=== PATIENT | male | born 1990 | race Caucasian/White ===

== ENCOUNTER 2022-08-15 10:01 | Emergency (ER) | payer OTHER, SELFPAY ==
[2022-08-15] VITALS (16 sets, daily range): BP systolic 122–138; BP diastolic 71–85; PULSE 76–92; RESP 13–27; TEMP 36.9; O2SAT 96–100
--- NOTE | ~2022-08-15 | XR_ITS ---
XR chest 1V 08/15/2022 10:29 Indication: Shortness of breath Procedure: AP portable chest Comparison: No prior studies for comparison. Findings: There are reticulonodular densities in the lung bases, most likely infectious/inflammatory. Heart size normal. No pleural effusion, edema or pneumothorax. No acute osseous abnormality. Impression: 1: Bibasilar reticulonodular densities, most likely infectious/inflammatory. Reviewed, dictated and finalized at location B. Impression: 1: Bibasilar reticulonodular densities, most likely infectious/inflammatory.
--- NOTE | 2022-08-15 10:17 | ECG_ITS ---
Measurements Intervals Clifford Rate: 88 P: 44 AK: 129 QRS: 10 QRSD: 85 T: 11 QT: 324 QTc: 392 Interpretive Statements SINUS RHYTHM BASELINE ARTIFACT- I, II, AVR, V4-V5 NORMAL ECG NO PREVIOUS ECG AVAILABLE FOR COMPARISON Electronically Signed On 08-15-2022 11:29:26 CDT by Huey Carlson D.O.
[2022-08-15 10:35] LABS: Basophils Absolute Auto 0.1 K/mm3 (0.0-0.1); Basophils Percent Auto 0.4 % (0.2-1.2); Eosinophils Absolute Auto 0.1 K/mm3 (0-0.3); Eosinophils Percent Auto 0.3 % (0-4.4); Hematocrit 40.9 % (42.0-52.0); Hemoglobin 14.4 g/dL (14.0-18.0); Immature Granulocyte Percent A 1.2 % (0-0.5); Lymphocytes Absolute Auto 3.94 K/mm3 (0.9-3.2); Mean Corpuscular HGB Conc 35.2 g/dl (32-36); Mean Corpuscular Hemoglobin 32.2 pg (26-34); Mean Corpuscular Volume 91.5 fl (80-100); Mean Platelet Volume 10.3 fl (7.4-10.4); Monocytes Absolute Auto 1.2 K/mm3 (0.1-0.6); Monocytes Percent Auto 7.2 % (2.6-8.5); Neutrophils Percent Auto 66.9 % (45.5-73.1); Platelet Count Result 227 k/mm3 (150-375); Red Blood Count 4.47 M/mm3 (4.6-6.20); Red Cell Distribution Width 12.7 % (11.5-14.5); White Blood Count 16.4 K/mm3 (4.5-10.0)
--- NOTE | 2022-08-15 10:47 | ED.SOB ---
HPI - SOB/Dyspnea General Chief Complaint: Shortness of Breath/Dyspnea Stated Complaint: SOB Time Seen by Provider: 08/15/22 10:24 History of Present Illness HPI Narrative: 32-year-old male presents to the emergency room for evaluation of shortness of breath, cough, difficulty breathing, sinus congestion, postnasal drip, frequently clearing his throat, and popping sensation in his ears. Patient states that symptoms have been present for 5 days. Patient states he was seen at an outside emergency room 3 days ago and diagnosed with bronchitis. Patient was given Tessalon Perles and steroid Dosepak. States symptoms are getting worse. Related Data Allergies Allergy/AdvReac Type Severity Reaction Status Date / Time Penicillins Allergy Hives Verified 08/15/22 10:32 Review of Systems Review of Systems: CONSTITUTIONAL: Denies fever, chills, or sweats. EYES: Denies visual changes, redness, or discharge. ENT: Reports rhinorrhea, congestion, sore throat, or otalgia. CARDIOVASCULAR: Denies chest pain, palpitations, or edema. RESPIRATORY: Reports cough or dyspnea. GASTROINTESTINAL: Denies abdominal pain, nausea, vomiting, or diarrhea. GENITOURINARY: Denies dysuria or hematuria. SKIN: Denies rash or itching. MUSCULOSKELETAL: Denies back pain, joint pain, or myalgia. NEUROLOGIC: Denies headache, numbness, dizziness, or weakness. PSYCHIATRIC: Denies anxiety or depression. Exam Narrative: GENERAL: Well-appearing, well-nourished, no physical limitations, and in no acute distress. HEAD: Normocephalic, atraumatic. EYES: Conjunctivae normal, PERRLA and EOMI. ENT: External nose normal, Nares clear, no rhinorrhea or epistaxis. Mucous membranes moist. Oropharynx without tonsillar hypertrophy exudate or other lesions. External ears normal, bilateral TMs normal bilaterally NECK: Supple. No adenopathy or masses. CHEST: Clear to auscultation. No respiratory distress. No wheezes rales or rhonchi. HEART: Regular rate and rhythm. No murmur heard. Normal peripheral pulses. EXTREMITIES: Normal range of motion. No edema. No clubbing or cyanosis SKIN: Warm, dry, no rash. No noted wounds NEURO: No focal deficits. Alert and oriented x3. MAEW. CN's II-XI intact bilaterally, normal gait PSYCH: Cooperative. Normal mood and affect. Course Vital Signs Vital signs: Vital Signs Temperature 36.9 C 08/15/22 10:27 Pulse Rate 92 08/15/22 10:27 Respiratory Rate 15 08/15/22 10:27 Blood Pressure 136/85 08/15/22 10:27 Pulse Oximetry 100 08/15/22 10:27 Oxygen Delivery Room Air 08/15/22 10:27 Temperature 36.9 C 08/15/22 10:27 Pulse Rate 92 08/15/22 10:30 Respiratory Rate 15 08/15/22 10:27 Blood Pressure 136/85 08/15/22 10:27 Pulse Oximetry 100 08/15/22 10:43 Oxygen Delivery Room Air 08/15/22 10:43 MDM - SOB/Dyspnea Lab Data Result diagrams: 08/15/22 10:23 08/15/22 10:23 Labs: Lab Results 08/15/22 08/15/22 08/15/22 Range/Units 10:23 10:23 10:23 WBC Pending RBC Pending Hgb Pending Hct Pending MCV Pending MCH Pending MCHC Pending RDW Pending Plt Count Pending MPV Pending Immature Gran % (Auto) Pending Neut % (Auto) Pending Lymph % (Auto) Pending Craig % (Auto) Pending Eos % (Auto) Pending Baso % (Auto) Pending Lymph # (Auto) Pending Craig # (Auto) Pending Eos # (Auto) Pending Baso # (Auto) Pending Abs Immat Gran (auto) Pending Absolute Neuts (auto) Pending Absolute Nucleated RBC Pending Nucleated RBC % Pending D-Dimer Pending Sodium Pending Potassium Pending Chloride Pending Carbon Dioxide Pending Anion Gap Pending BUN Pending Creatinine Pending Estim Creat Clear Calc Pending Estimated GFR Pending Glucose Pending Calcium Pending Total Bilirubin Pending AST Pending ALT Pending
[2022-08-15 10:50] LABS: Alanine Aminotransferase 25 U/L (6-50); Albumin Level 4.5 g/dL (3.5-5.1); Alkaline Phosphatase 60 U/L (38-126); Anion Gap 13 mmol/L (8-16); Aspartate Amino Transferase 27 U/L (17-59); Bilirubin,Total 0.3 mg/dL (0.2-1.3); Blood Urea Nitrogen 8 mg/dL (9-20); Calcium 8.9 mg/dL (8.4-10.2); Carbon Dioxide 27 mmol/L (22-30); Chloride 101 mmol/L (98-107); Estimated CRCL calculation 157 ml/min; Estimated Glomerular Filt Rate > 60; Glucose 98 mg/dL (65-110); Potassium 3.4 mmol/L (3.4-5.0); Sodium 141 mmol/L (137-145)
[2022-08-15] MEDS: ALBUTEROL SULFATE NEB 2.5 MG/3 ML INH INHALATION (10:50)
[2022-08-15] MEDS: IPRATROPIUM BR 0.02% INH SOLN 0.5 MG/2.5 ML VIAL INHALATION (10:50)
[2022-08-15 10:51] LABS: D Dimer 0.31 ug/mL (<0.48)
[2022-08-15 11:36] LABS: Influenza A QL RT-PCR Negative (Negative); Influenza B QL RT-PCR Negative (Negative); SARS-CoV-2 RNA PCR Negative
== END 2022-08-15 11:50 | disposition home or self-care (01) ==
PROVIDERS: Emergency Medicine; Emergency Provider Nurse Practitioner Family; PCP Internal Medicine
DX: J06.9 Acute upper respiratory infection, unspecified (principal); Z20.822 Contact with and (suspected) exposure to COVID-19
CPT/HCPCS: 36415; 71045; 80053; 85025; 85380; 87502; 93005; 94640; 99284; C9803; U0003; U0005